=== PATIENT | female | born 1945 | race Caucasian/White ===

== ENCOUNTER → 2017-05-27 | Outpatient (CLI) | payer MEDICARE, OTHER ==
[~2017-05-27] MED LIST: EVISTA60 MG PO; MULTI-DAY VITAM1 TAB PO; PERCOCET5/325 PO; PROTONIX PO
--- NOTE | ~2017-05-27 | US200 ---
[facility] A Service of [facility] & [facility] RADIOLOGY TEXT RESULTS PATIENT: ARLETTE KENNEDY LOCATION: [facility] : 43 UNIT #: [id number] AGE: [address]: Leyla Khan APRN SEX: F ORDER DR: [id number] [facility] [address] [place], [place] [address] [id number] O MR#: [id number] Acc #: [id number] NAME: ARLETTE KENNEDY. : 1945 SEX: F STUDY DATE/TIME: 05/27/2017 13:09 UNIT: [facility] ROOM: STUDY DESCRIPTION: US Breast Guided Bx 1st Lesion Attending Physician: Leyla Khan A.P.R.N. Referring Physician: Leyla Khan A.P.R.N. Ordering Physician: Leyla Khan A.P.R.N. Primary Care Physician: Leyla Khan A.P.R.N. MEDICAL IMAGING REPORT This report is preliminary unless electronic signature is present REVISED REPORT SEE ADDENDUM EXAM Ultrasound-guided right breast biopsy on 05/27. INDICATIONS Abnormal outside mammogram and ultrasound showing a nodule near the 12 o'clock position of the right breast. Biopsy was recommended. PROCEDURE Informed consent was obtained and a time-out was performed. Patient's prior imaging from [facility] was reviewed. Imaging today confirms the presence of an irregular hypoechoic nodule at the 12 o'clock position of the right breast. It measures up to 7 mm in maximum dimension. The skin was marked and then prepped and draped using maximum sterile-barrier technique. 1% lidocaine without epinephrine used for local anesthesia. Under direct ultrasound guidance, two 14 gauge cores were obtained through the small nodule with an Achieve needle. Specimens were placed in formalin. A marking clip was left in place partially within the mass. This is in the expected location on the postprocedure mammogram. Permanent ultrasound images were recorded. The ultrasound lesion and the mammographic lesion appear to be the same lesion based on location. IMPRESSION Successful ultrasound-guided core biopsy of a nodule at the 12 o'clock position of the right breast. Two 14 gauge cores were obtained and a marking clip was left in place. No immediate complication. Dictated by... Yung Thompson Jr., M.D. [facility] A Service of [facility] RADIOLOGY TEXT RESULTS PATIENT: ARLETTE KENNEDY LOCATION: [facility] : 43 UNIT #: [id number] AGE: [address]: Leyla Khan APRN SEX: F ORDER DR: Nav TD: 05/27/2017 17:46 JOB #: [id number] ADDEDUM: Final pathology has been received. 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 Please see the full pathology report. No malignancy is identified. Imaging results and pathology results are concordant. The patient should continue with routine yearly mammographic screening. Dictated by... Yung Thompson Jr., M.D. THIS IS AN ELECTRONICALLY VERIFIED REPORT Yung Thompson Jr., M.D. at 06/22/2017 4:42 PM Darshana TD: 06/22/2017 12:45 JOB #: [id number] CC: [email or web address] Please Delete MEDICAL IMAGING REPORT Page 1 of 1 COPY
== END | disposition home or self-care (01) ==
LOC: CWCC 11:47 → EDSTATUS 12:45 → CWCC 12:45
DX: N60.21 Fibroadenosis of right breast (principal); N60.91 Unspecified benign mammary dysplasia of right breast
CPT/HCPCS: 88305; 88344; G0204